=== PATIENT | female | born 1980 | race Caucasian/White ===

== ENCOUNTER 2023-12-26 06:34 | Day surgery (SDC) | payer MEDICAID ==
[~2023-12-26] VITALS: Ht 165.1 cm; Wt 99.8 kg
[2023-12-26 06:45] VITALS: BP 129/79; PULSE 70; RESP 20
[2023-12-26] MEDS ORDERED: MIDAZOLAM HCL 1 MG/ML 2ML VIAL ONE (07:34)
[2023-12-26] MEDS ORDERED: LIDOCAINE PF 100MG/5ML (2%) SYRINGE 5ML ONE (07:34)
[2023-12-26] MEDS ORDERED: PROPOFOL 10 MG/ML 20ML VIAL IV ONE (07:34)
[2023-12-26] MEDS: 0.9%NACL 1000ML 1,000 ML IV ONE (07:52)
[2023-12-26] MEDS: BOTULINUM TOXIN TYPE A 100 UNITS/VIAL INJ SCH (07:53)
[2023-12-26] MEDS: KETOROLAC 30MG VIAL (30MG/ML) ONE (08:10)
== END 2023-12-26 08:40 | disposition home or self-care (01) ==
LOC: DAH 06:34
PROVIDERS: ATTEND Surgery
DX: K60.2 Anal fissure, unspecified (principal); K62.1 Rectal polyp; K64.1 Second degree hemorrhoids; K92.1 Melena; K62.89 Other specified diseases of anus and rectum; I10 Essential (primary) hypertension; F17.210 Nicotine dependence, cigarettes, uncomplicated; Z98.84 Bariatric surgery status; Z79.899 Other long term (current) drug therapy; Z98.890 Other specified postprocedural states
CPT/HCPCS: 81025; 45335; 45331; A6260; J7030; J3490 ×2; J2250; J1885; J0585; A4620; A4215 ×2; A4223; A4657 ×2; A7002; A4222; A4221; A4663; A4216; A4606; J2001; J2704